=== PATIENT | female | born 1990 | race Caucasian/White ===

== ENCOUNTER 2020-05-03 05:17 | Inpatient (IN) | payer BC ==
[2020-04-26 14:08] LABS: CLARITY,URINE CLEAR (Clear); COLOR,URINE STRAW (Yellow); GLUCOSE, URINE NEGATIVE (Neg); KETONES,URINE NEGATIVE (Neg); LEUKOCYTE ESTERASE ,URINE NEGATIVE (Neg); NITRITES, URINE NEGATIVE (Neg); OCCULT BLOOD,URINE NEGATIVE (Neg); PH,URINE 7.5 (4.8-8.0); PROTEIN,URINE NEGATIVE (Neg)
[2020-04-26 14:09] LABS: UA COLLECTION TYPE CLN CATCH MIDSTREAM
[2020-04-26 14:10] LABS: BASOPHILS # (AUTO) 0.1 X10'3 (0-0.2); BASOPHILS % (AUTO) 0.9 % (0-1); EOSINOPHILS # (AUTO) 0.1 X10'3 (0-0.9); EOSINOPHILS % (AUTO) 1.4 % (0-6); LYMPHOCYTES # (AUTO) 2.5 X10'3 (1.1-4.8); LYMPHOCYTES % (AUTO) 39.4 % (21-51); MEAN CORPUSCULAR HEMOGLOBIN 28.3 PG (27.0-31.0); MEAN CORPUSCULAR HGB CONC 33.3 g/dL (33.0-36.5); MEAN CORPUSCULAR VOLUME 85.1 FL (78-98); MEAN PLATELET VOLUME 9.8 FL (7.4-10.4); MONOCYTES # (AUTO) 0.3 X10'3 (0-0.9); MONOCYTES % (AUTO) 4.9 % (2-12); NEUTROPHILS # (AUTO) 3.4 X10'3 (1.8-7.7); NEUTROPHILS % (AUTO) 53.4 % (42-75); PRE OP HEMATOCRIT 39.4 % (35.0-45.0); PRE OP HEMOGLOBIN 13.1 g/dL (12.0-16.0); PRE OP PLATELET COUNT 304 X10'3 (140-440); RED BLOOD COUNT 4.64 X10'6 (4.20-5.60); RED CELL DISTRIBUTION WIDTH 12.6 % (11.5-14.5)
[2020-04-26 14:18] LABS: PRE OP INR 1.1 INR
[2020-04-26 14:21] LABS: ALBUMIN 4.1 G/DL (3.4-5.0); ALBUMIN/GLOBULIN RATIO 1.2 (1.1-1.5); ALKALINE PHOSPHATASE 82 IU/L (46-116); BLOOD UREA NITROGEN 14 MG/DL (7-18); BUN/CREATININE RATIO 17.7 (6.6-38.0); CALCIUM 8.4 MG/DL (8.5-10.1); CHLORIDE 104 MMOL/L (99-107); CREATININE 0.79 MG/DL (0.40-0.90); PRE OP ALT 19 U/L (30-65); PRE OP ANION GAP 5 (8-16); PRE OP AST 15 U/L (10-37); PRE OP BILIRUB, TOTAL 0.5 MG/DL (0.0-1.0); PRE OP GLUCOSE 82 MG/DL (70-104); PRE OP POTASSIUM 3.6 MMOL/L (3.4-5.1); PRE OP SODIUM 140 MMOL/L (135-145); TOTAL CARBON DIOXIDE 30.8 MMOL/L (24-32); TOTAL PROTEIN 7.6 G/DL (6.4-8.2); eGFR 85 ML/MIN
[2020-04-26 14:29] LABS: HCG SERUM QL NEGATIVE
[2020-04-26 14:40] LABS: ABG BASE EXCESS 0.5 mmol/L (-2.0-2.0); ABG HCO3 25.6 mmol/L (22.0-26.0); ABG OXYGEN SATURATION 96.5 % (94-97); ABG PO2 (T) 86.2 mmHg (75.0-100.0); ALLEN'S TEST POSITIVE; FCOHb 0.3 % (0.0-3.9); FMetHb 0.1 % (0.0-1.5); FO2Hb 96.1 % (94-97); TOTAL HEMOGLOBIN 13.7 G/dl (12.0-16.0)
[~2020-05-03] VITALS: Ht 149.9 cm; Wt 60.6 kg
[2020-05-03] VITALS (17 sets, daily range): BP systolic 91–120; BP diastolic 49–88
[~2020-05-03 05:17] MED LIST: NO HOME MEDS; ceFAZolin 1000mg inj ONE; ringers solution, lacted 1,000 ML IV SCH
[2020-05-03] MEDS ORDERED: VANCOMYCIN INJ 1000 MG in NORMAL SALINE 250ml IV.SOLN IV ONE (05:30)
[2020-05-03] MEDS ORDERED: mupirocin 2% nasal ointment 1gm UD NS ONE (05:30)
[2020-05-03] MEDS ORDERED: insulin regular, human inj. 100 UNITS in normal saline 100ml IV IV SCH (05:30)
[2020-05-03] MEDS ORDERED: gabapentin 400mg capsule PO ONE (05:30)
[2020-05-03] MEDS ORDERED: diazepam 5mg tablet PO PRN (05:30)
[2020-05-03] MEDS ORDERED: metoprolol tartrate 12.5mg (1/2 tablet) PO ONE (05:30)
[2020-05-03] MEDS ORDERED: dextrose 50%-water 50ml dispensing syringe IV PRN ×2 (05:30→11:00)
[2020-05-03] MEDS ORDERED: famotidine 20mg tablet PO ONE (05:30)
[2020-05-03] MEDS ORDERED: ceFAZolin 2gm in dextrose, iso 50 ML IV ONE (05:30)
[2020-05-03] MEDS ORDERED: LIDOcaine 1% (10mg/ml) 2ml vial ONE (05:56)
[2020-05-03] MEDS: LORazepam 2 mg/ml vial IV ONE ×2 (06:13→07:10)
[2020-05-03] MEDS ORDERED: LORazepam 2 mg/ml vial ONE (06:27)
[2020-05-03] MEDS ORDERED: SUFENTANIL CITRATE 50 MCG/ML 2ml ampule IV ONE (07:04)
[2020-05-03] MEDS ORDERED: nitroGLYCERIN in D5W 50mg/250ml (Tridil) infusion IV ONE (07:05)
[2020-05-03] MEDS ORDERED: DOPamine/D5W 400mg/250ml bag IV ONE (07:05)
[2020-05-03] MEDS ORDERED: isoflurane 100ml inhalation liquid IH ONE (07:05)
[2020-05-03] MEDS ORDERED: LORazepam 2 mg/ml vial IM ONE (07:10)
[2020-05-03] MEDS ORDERED: LIDOcaine 2% (20mg/ml) 5ml vial ONE (07:29)
[2020-05-03] MEDS ORDERED: propofol inj 20 ML IV ONE (07:29)
[2020-05-03] MEDS ORDERED: rocuronium 10mg/ml inj IV ONE (07:29)
[2020-05-03] MEDS ORDERED: phenylephrine 10mg/ml inj. ONE ×2 (07:30→08:00)
[2020-05-03 08:00] LABS: ABG BASE EXCESS -0.3 mmol/L (-2.0-2.0); ABG HCO3 21.8 mmol/L (22.0-26.0); ABG OXYGEN SATURATION 99.6 % (94-97); ABG PCO2 27.9 mmHg (32.0-45.0); ABG PO2 283.2 mmHg (75.0-100.0); CL (ABG) 109 mmol/L (98-110); FCOHb 0.4 % (0.0-3.9); FMetHb 0.3 % (0.0-1.5); FO2Hb 98.9 % (94-97); GLUCOSE (ABG) 58 mg/dl (70-140); IONIZED CA (ABG) 1.12 mmol/L (1.10-1.43); K (ABG) 3.4 mmol/L (3.5-5.0)
[2020-05-03] MEDS ORDERED: LIDOcaine 2% (20 mg/ml) 5ml cardiac syringe ONE (08:00)
[2020-05-03] MEDS ORDERED: calcium chloride 100 MG/1 ML inj IV ONE (08:00)
[2020-05-03] MEDS ORDERED: potassium Cl 2 mEq/ml inj IV ONE (08:00)
[2020-05-03] MEDS ORDERED: albumin (human) 25% 100 ML IV solution IV ONE (08:00)
[2020-05-03] MEDS ORDERED: sodium bicarbonate (8.4%) 1 mEq/ml syringe ONE (08:00)
[2020-05-03] MEDS ORDERED: aminocaproic acid 250 MG/1 ML inj. ONE (08:00)
[2020-05-03] MEDS ORDERED: methylPREDNISolone sod succ 1000mg vial ONE (08:00)
[2020-05-03] MEDS ORDERED: MAGNESIUM SULFATE 4 MEQ/ML (5gm/10ml) injection ONE (08:00)
[2020-05-03] MEDS ORDERED: heparin 10,000 units/1 ML INJ ONE (08:00)
[2020-05-03 08:41] LABS: ABG BASE EXCESS -1.9 mmol/L (-2.0-2.0); ABG HCO3 21.7 mmol/L (22.0-26.0); ABG OXYGEN SATURATION 99.4 % (94-97); ABG PCO2 33.1 mmHg (32.0-45.0); ABG PO2 225.9 mmHg (75.0-100.0); CL (ABG) 106 mmol/L (98-110); FCOHb 0.3 % (0.0-3.9); FMetHb 0.3 % (0.0-1.5); FO2Hb 98.8 % (94-97); GLUCOSE (ABG) 243 mg/dl (70-140); IONIZED CA (ABG) 1.11 mmol/L (1.10-1.43); K (ABG) 3.4 mmol/L (3.5-5.0); TOTAL HEMOGLOBIN 10.8 G/dl (12.0-16.0)
[2020-05-03 09:06] LABS: ABG BASE EXCESS VENOUS -0.6 mmol/L; ABG PCO2 VENOUS 46.5 mmHg; ABG PO2 VENOUS 48.9 mmHg; CL (ABG) 104 mmol/L (98-110); FHHb VENOUS 15.5 %; FMetHb VENOUS 0.3 %; FO2Hb VENOUS 83.2 %; GLUCOSE (ABG) 154 mg/dl (70-140); IONIZED CA (ABG) 0.99 mmol/L (1.10-1.43); K (ABG) 4.7 mmol/L (3.5-5.0); TOTAL HEMOGLOBIN 7.8 G/dl (12.0-16.0)
[2020-05-03 09:10] LABS: ABG BASE EXCESS -0.6 mmol/L (-2.0-2.0); ABG HCO3 24.6 mmol/L (22.0-26.0); ABG OXYGEN SATURATION 99.7 % (94-97); ABG PCO2 43.1 mmHg (32.0-45.0); ABG PO2 454.1 mmHg (75.0-100.0); CL (ABG) 105 mmol/L (98-110); FCOHb 0.7 % (0.0-3.9); FMetHb 0.3 % (0.0-1.5); FO2Hb 98.7 % (94-97); GLUCOSE (ABG) 155 mg/dl (70-140); IONIZED CA (ABG) 1.01 mmol/L (1.10-1.43); K (ABG) 4.3 mmol/L (3.5-5.0); TOTAL HEMOGLOBIN 7.8 G/dl (12.0-16.0)
[2020-05-03 09:35] LABS: ABG BASE EXCESS -1.1 mmol/L (-2.0-2.0); ABG HCO3 24.2 mmol/L (22.0-26.0); ABG OXYGEN SATURATION 99.1 % (94-97); ABG PCO2 43.6 mmHg (32.0-45.0); ABG PO2 356.4 mmHg (75.0-100.0); CL (ABG) 106 mmol/L (98-110); FCOHb 0.3 % (0.0-3.9); FMetHb 0.4 % (0.0-1.5); FO2Hb 98.4 % (94-97); GLUCOSE (ABG) 182 mg/dl (70-140); IONIZED CA (ABG) 1.02 mmol/L (1.10-1.43); K (ABG) 3.5 mmol/L (3.5-5.0); TOTAL HEMOGLOBIN 8.7 G/dl (12.0-16.0)
[2020-05-03] MEDS ORDERED: albuterol 2.5 MG/3 ML nebule NEB PRN (09:40)
[2020-05-03 09:55] LABS: ABG BASE EXCESS 2.4 mmol/L (-2.0-2.0); ABG HCO3 26.4 mmol/L (22.0-26.0); ABG OXYGEN SATURATION 98.8 % (94-97); ABG PCO2 38.2 mmHg (32.0-45.0); ABG PO2 305.8 mmHg (75.0-100.0); CL (ABG) 104 mmol/L (98-110); FCOHb 0.3 % (0.0-3.9); FMetHb 0.6 % (0.0-1.5); FO2Hb 97.9 % (94-97); GLUCOSE (ABG) 183 mg/dl (70-140); IONIZED CA (ABG) 1.31 mmol/L (1.10-1.43); K (ABG) 4.3 mmol/L (3.5-5.0); TOTAL HEMOGLOBIN 7.6 G/dl (12.0-16.0)
[2020-05-03 10:36] LABS: ABG BASE EXCESS 0.5 mmol/L (-2.0-2.0); ABG HCO3 23.5 mmol/L (22.0-26.0); ABG OXYGEN SATURATION 98.7 % (94-97); ABG PCO2 31.5 mmHg (32.0-45.0); ABG PO2 205.4 mmHg (75.0-100.0); CL (ABG) 107 mmol/L (98-110); FCOHb 0.3 % (0.0-3.9); FMetHb 0.4 % (0.0-1.5); GLUCOSE (ABG) 159 mg/dl (70-140); IONIZED CA (ABG) 1.24 mmol/L (1.10-1.43); K (ABG) 3.6 mmol/L (3.5-5.0); TOTAL HEMOGLOBIN 9.9 G/dl (12.0-16.0)
[2020-05-03] MEDS ORDERED: acetaminophen 1,000mg/100ml IV 100 ML IV ONE (10:47)
[2020-05-03] MEDS ORDERED: NORMAL SALINE IV ONE (10:50)
[2020-05-03] MEDS ORDERED: DESMOPRESSIN IV ONE (10:50)
[2020-05-03] MEDS ORDERED: pancuronium br 1mg/ml inj IV ONE (10:54)
[2020-05-03] MEDS ORDERED: DOPamine 400mg/D5W 250ml 250 ML IV PRN ×3 (10:56→14:57)
[2020-05-03] MEDS ORDERED: niCARDipine-NS 40mg/200ml IVPB 200 ML IV PRN ×2 (10:56→11:42)
[2020-05-03] MEDS ORDERED: nitroGLYCERIN-Tridil 50MG/D5W 250 ML IV PRN ×2 (10:56→11:43)
[2020-05-03] MEDS ORDERED: normal saline 250ml IV soln 250 ML IV PRN (11:00)
[2020-05-03] MEDS ORDERED: sodium phosphate inj. 30 MMOL in dextrose 5%-water 250 ML IV PRN (11:00)
[2020-05-03] MEDS ORDERED: metoclopramide 5 mg/ml inj IV PRN (11:00)
[2020-05-03] MEDS ORDERED: insulin glargine (Lantus) pen - multi-dose SQ PRN (11:00)
[2020-05-03] MEDS ORDERED: pantoprazole 40 MG vial IV ONE (11:00)
[2020-05-03] MEDS ORDERED: sodium phosphate inj. 15 MMOL in dextrose 5%-water 250 ML IV PRN (11:00)
[2020-05-03] MEDS ORDERED: magnesium citrate 296ml oral solution PO PRN (11:00)
[2020-05-03] MEDS ORDERED: HYDROmorphone 1 mg/ml syringe IV PRN (11:00)
[2020-05-03] MEDS ORDERED: Neutra Phos packet PO PRN (11:00)
[2020-05-03] MEDS ORDERED: mineral oil 133ml enema RC PRN (11:00)
[2020-05-03] MEDS ORDERED: acetaminophen 325mg tablet PO PRN ×2 (11:00)
[2020-05-03] MEDS ORDERED: ondansetron/PF 4mg/2ml inj IV PRN (11:00)
[2020-05-03] MEDS ORDERED: HYDROcodone/acetaminophen 10/325mg tab PO PRN (11:00)
[2020-05-03] MEDS ORDERED: bisacodyl 10mg suppository rectal RC PRN (11:00)
[2020-05-03 11:07] LABS: BASOPHILS % (AUTO) 0.2 % (0-1); EOSINOPHILS % (AUTO) 0.3 % (0-6); HEMATOCRIT 31.5 % (35.0-45.0); HEMOGLOBIN 10.6 g/dl (12.0-16.0); LYMPHOCYTES # (AUTO) 1.3 X10'3 (1.1-4.8); LYMPHOCYTES % (AUTO) 8.9 % (21-51); MEAN CORPUSCULAR HEMOGLOBIN 28.4 PG (27.0-31.0); MEAN CORPUSCULAR HGB CONC 33.8 g/dL (33.0-36.5); MEAN PLATELET VOLUME 9.5 FL (7.4-10.4); MONOCYTES # (AUTO) 0.3 X10'3 (0-0.9); MONOCYTES % (AUTO) 2.2 % (2-12); NEUTROPHILS # (AUTO) 13.2 X10'3 (1.8-7.7); NEUTROPHILS % (AUTO) 88.4 % (42-75); PLATELET COUNT 183 X10'3 (140-440); RED BLOOD COUNT 3.75 X10'6 (4.20-5.60); RED CELL DISTRIBUTION WIDTH 12.3 % (11.5-14.5); WHITE BLOOD COUNT 14.9 X10'3 (4.5-11.0)
[2020-05-03 11:09] LABS: ALBUMIN 3.2 G/DL (3.4-5.0); ANION GAP 5 (8-16); BLOOD UREA NITROGEN 9 MG/DL (7-18); BUN/CREATININE RATIO 11.8 (6.6-38.0); CALCIUM 9.2 MG/DL (8.5-10.1); CHLORIDE 109 MMOL/L (99-107); CREATININE 0.76 MG/DL (0.40-0.90); GLUCOSE 140 MG/DL (70-104); POTASSIUM 3.6 MMOL/L (3.5-5.1); SODIUM 142 MMOL/L (135-145); TOTAL CARBON DIOXIDE 27.8 MMOL/L (24-32); eGFR 89 ML/MIN
[2020-05-03] MEDS ORDERED: albumin (Human) 5% 250ml 250 ML IV ONE (11:13)
[2020-05-03 11:14] LABS: PARTIAL THROMBOPLASTIN TIME 30 SECONDS (22-32)
--- NOTE | 2020-05-03 11:20 | NUR ---
Received to room 2008, accompanied by MDs and surgical crew, Donald. Placed on ventilator at 80%, ABG pending, to staff toxicologist, arterial line and PA line pressure monitored. Chest tubes to suction at 20 cm. Urine cath to gravity drainage. Dressing to antertior chest is dry and intact. See assessment record. All vasoactive drugs are infusing via central line.
--- NOTE | 2020-05-03 11:50 | NUR ---
Dr. Klein at bedside, current labs reviewed, current chest tube output. No new orders.
[2020-05-03] MEDS: potassium Cl 20mEq/100mL bag 100 ML IV PRN ×5 (11:58→19:27)
[2020-05-03] MEDS: HYDROmorphone inj. 0.5 MG/0.5 ML DISP.SYRIN IV PRN ×4 (12:12→22:26)
[2020-05-03] MEDS: sodium chloride 0.45% 1,000 ML IV SCH (12:13)
[2020-05-03] MEDS: albumin (Human) 5% 250ml 250 ML IV PRN ×3 (12:30→21:09)
[2020-05-03 12:36] LABS: ABG BASE EXCESS -2.4 mmol/L (-2.0-2.0); ABG OXYGEN SATURATION 99.1 % (94-97); ABG PCO2 (T) 31.7 mmHg (32.0-45.0); ABG PO2 (T) 373.1 mmHg (75.0-100.0); FCOHb 0.3 % (0.0-3.9); FMetHb 0.4 % (0.0-1.5); FO2Hb 98.4 % (94-97); PEEP 5 cm H2O; RESPIRATORY RATE 12 b/min; TIDAL VOLUME 450 mL; TOTAL HEMOGLOBIN 12.1 G/dl (12.0-16.0)
[2020-05-03 12:47] LABS: MAGNESIUM 2.4 MG/DL (1.5-2.4)
[2020-05-03 12:50] LABS: PHOSPHORUS 1.1 MG/DL (2.3-4.5)
[2020-05-03] MEDS: magnesium 2GM in 50ml NS 50 ML IV PRN ×2 (12:59→18:39)
[2020-05-03] MEDS: Insulin Reg/NS 100units/100mL 100 ML IV SCH (13:07)
[2020-05-03] MEDS: gabapentin 300mg capsule PO SCH ×2 (13:35→20:12)
--- NOTE | 2020-05-03 13:46 | NUR ---
Nutrition consult: Pt s/p AVR today. Pt would benefit from nutrition therapy education once stable. Will continue to follow. Addendum: 05/03/20 at [address] Amended: Links added.
[2020-05-03] MEDS: ketorolac tromethamine 15mg/ml inj. IV SCH ×2 (13:59→20:13)
[2020-05-03 15:56] LABS: ACTIVATED CLOTTING TIME 119 SEC (101-148)
[2020-05-03] MEDS: ceFAZolin 1GM/D5W- ADD-VANTAGE 50 ML IV SCH ×2 (16:21→23:57)
[2020-05-03 17:50] LABS: BASOPHILS % (AUTO) 0.1 % (0-1); EOSINOPHILS % (AUTO) 0 % (0-6); HEMATOCRIT 29.9 % (35.0-45.0); LYMPHOCYTES # (AUTO) 0.5 X10'3 (1.1-4.8); LYMPHOCYTES % (AUTO) 3.1 % (21-51); MEAN CORPUSCULAR HEMOGLOBIN 28.5 PG (27.0-31.0); MEAN CORPUSCULAR HGB CONC 33.4 g/dL (33.0-36.5); MEAN CORPUSCULAR VOLUME 85.3 FL (78-98); MEAN PLATELET VOLUME 9.6 FL (7.4-10.4); MONOCYTES # (AUTO) 0.3 X10'3 (0-0.9); MONOCYTES % (AUTO) 2.1 % (2-12); NEUTROPHILS # (AUTO) 14.2 X10'3 (1.8-7.7); NEUTROPHILS % (AUTO) 94.7 % (42-75); PLATELET COUNT 145 X10'3 (140-440); RED CELL DISTRIBUTION WIDTH 12.4 % (11.5-14.5)
[2020-05-03 18:08] LABS: ALBUMIN 4.2 G/DL (3.4-5.0); ANION GAP 10 (8-16); BLOOD UREA NITROGEN 10 MG/DL (7-18); BUN/CREATININE RATIO 11.9 (6.6-38.0); CALCIUM 8.7 MG/DL (8.5-10.1); CHLORIDE 111 MMOL/L (99-107); CREATININE 0.84 MG/DL (0.40-0.90); GLUCOSE 111 MG/DL (70-104); MAGNESIUM 2.4 MG/DL (1.5-2.4); POTASSIUM 3.8 MMOL/L (3.5-5.1); SODIUM 145 MMOL/L (135-145); TOTAL CARBON DIOXIDE 23.7 MMOL/L (24-32); eGFR 80 ML/MIN
[2020-05-03 18:13] LABS: PHOSPHORUS 1.2 MG/DL (2.3-4.5)
--- NOTE | 2020-05-03 18:49 | NUR ---
Patient in room CICU 2008. I have received report from Sanjuana SÁNCHEZ and had the opportunity to ask questions and assume patient care.
[2020-05-03] MEDS: mupirocin 2% nasal ointment 1gm UD NS SCH (20:13)
[2020-05-03] MEDS: vancomycin/NS 1 GM ADD-VANTAGE 250 ML IV SCH (20:13)
[2020-05-03] MEDS: sennosides/docusate sodium tablet PO SCH (20:13)
--- NOTE | 2020-05-03 21:30 | NUR ---
Pt's SBP is sustaining in the 80's, 250ml of albumin given as ordered
[2020-05-03 21:55] LABS: ABG BASE EXCESS -5.4 mmol/L (-2.0-2.0); ABG HCO3 19.2 mmol/L (22.0-26.0); ABG OXYGEN SATURATION 98.2 % (94-97); ABG PCO2 (T) 33.9 mmHg (32.0-45.0); ABG PO2 (T) 139.6 mmHg (75.0-100.0); FCOHb 0.3 % (0.0-3.9); FMetHb 0.3 % (0.0-1.5); FO2Hb 97.6 % (94-97); PATIENT TEMPERATURE 36.9; PEEP 5 cm H2O; TOTAL HEMOGLOBIN 10.3 G/dl (12.0-16.0)
[2020-05-04] VITALS (24 sets, daily range): BP systolic 90–118; BP diastolic 45–80
[2020-05-04] MEDS: HYDROmorphone inj. 0.5 MG/0.5 ML DISP.SYRIN IV PRN ×5 (00:42→19:12)
--- NOTE | 2020-05-04 01:36 | NUR ---
Pt doing well, fatigued but in good spirits. She has had some water and tolerated it well, no nausea. The pt has been painful, receptive to sternal precautions education and Dilaudid helps control it. The pt's belongings were left in the PASS unit and will be up in the morning when they are open. Pt is still pacer dependent.
[2020-05-04] MEDS: ketorolac tromethamine 15mg/ml inj. IV SCH ×3 (02:35→10:27)
[2020-05-04 04:01] LABS: BASOPHILS % (AUTO) 0.1 % (0-1); EOSINOPHILS % (AUTO) 0 % (0-6); HEMATOCRIT 27.6 % (35.0-45.0); HEMOGLOBIN 9.1 g/dl (12.0-16.0); LYMPHOCYTES # (AUTO) 0.9 X10'3 (1.1-4.8); LYMPHOCYTES % (AUTO) 6.3 % (21-51); MEAN CORPUSCULAR VOLUME 84.9 FL (78-98); MEAN PLATELET VOLUME 10.5 FL (7.4-10.4); MONOCYTES # (AUTO) 0.8 X10'3 (0-0.9); MONOCYTES % (AUTO) 5.5 % (2-12); NEUTROPHILS # (AUTO) 13.2 X10'3 (1.8-7.7); NEUTROPHILS % (AUTO) 88.1 % (42-75); PLATELET COUNT 148 X10'3 (140-440); RED BLOOD COUNT 3.24 X10'6 (4.20-5.60); RED CELL DISTRIBUTION WIDTH 12.7 % (11.5-14.5)
[2020-05-04 04:11] LABS: ALANINE AMINOTRANSFERASE 20 U/L (12-78); ALBUMIN 3.9 G/DL (3.4-5.0); ALBUMIN/GLOBULIN RATIO 2.1 (1.1-1.5); ALKALINE PHOSPHATASE 38 IU/L (46-116); ANION GAP 8 (8-16); ASPARTATE AMINO TRANSFERASE 46 U/L (10-37); BILIRUBIN,TOTAL 0.7 MG/DL (0.1-1.0); BLOOD UREA NITROGEN 8 MG/DL (7-18); BUN/CREATININE RATIO 15.4 (6.6-38.0); CALCIUM 7.7 MG/DL (8.5-10.1); CHLORIDE 108 MMOL/L (99-107); CREATININE 0.52 MG/DL (0.40-0.90); GLUCOSE 120 MG/DL (70-104); MAGNESIUM 2.3 MG/DL (1.5-2.4); PARTIAL THROMBOPLASTIN TIME 35 SECONDS (22-32); PHOSPHORUS 3.8 MG/DL (2.3-4.5); POTASSIUM 3.9 MMOL/L (3.5-5.1); SODIUM 140 MMOL/L (135-145); TOTAL CARBON DIOXIDE 23.6 MMOL/L (24-32); TOTAL PROTEIN 5.8 G/DL (6.4-8.2); eGFR > 90 ML/MIN
--- NOTE | 2020-05-04 04:42 | NUR ---
pt's belongings were brought from the pass unit and everything was in the bag. Pt also sat at the edge of the bed and dangled her legs and then stood for a few mins, the pt tolerated it well
[2020-05-04] MEDS: magnesium 2GM in 50ml NS 50 ML IV PRN (04:50)
[2020-05-04] MEDS: potassium Cl 20mEq/100mL bag 100 ML IV PRN ×2 (04:50→05:44)
--- NOTE | 2020-05-04 06:22 | NUR ---
Problems reprioritized. Patient report given, questions answered & plan of care reviewed with Ivania SÁNCHEZ.
--- NOTE | 2020-05-04 06:30 | NUR ---
Received report from PRINCESS Lawson
[2020-05-04] MEDS: HYDROcodone/acetaminophen 10/325mg tab PO PRN ×4 (07:01→21:58)
[2020-05-04] MEDS ORDERED: metoprolol tartrate 12.5mg (1/2 tablet) PO SCH (08:00)
[2020-05-04] MEDS: ceFAZolin 1GM/D5W- ADD-VANTAGE 50 ML IV SCH ×3 (08:08→23:53)
[2020-05-04] MEDS: gabapentin 300mg capsule PO SCH ×3 (08:09→20:52)
[2020-05-04] MEDS: atorvastatin 10mg tablet PO SCH (08:09)
[2020-05-04] MEDS: aspirin 325mg tablet, delayed-release (Ecotrin) PO SCH (08:09)
[2020-05-04] MEDS: sennosides/docusate sodium tablet PO SCH ×2 (08:09→20:52)
[2020-05-04] MEDS: mupirocin 2% nasal ointment 1gm UD NS SCH ×2 (08:09→20:52)
[2020-05-04] MEDS: vancomycin/NS 1 GM ADD-VANTAGE 250 ML IV SCH ×2 (08:10→20:52)
[2020-05-04 08:52] LABS: MAGNESIUM 2.6 MG/DL (1.5-2.4); PHOSPHORUS 2.9 MG/DL (2.3-4.5); POTASSIUM 4.5 MMOL/L (3.5-5.1)
[2020-05-04] MEDS ORDERED: ketorolac tromethamine 15mg/ml inj. IV ONE (10:00)
--- NOTE | 2020-05-04 18:58 | NUR ---
Report given to Nathen RN
--- NOTE | 2020-05-04 19:00 | NUR ---
Patient in room CICU 2008. I have received report from Ivania SÁNCHEZ and had the opportunity to ask questions and assume patient care. pt has soft BP 90's over 40's is normal for this pt per hand off report and pt.
[2020-05-04] MEDS: Insulin Reg/NS 100units/100mL 100 ML IV SCH (20:16)
[2020-05-05] VITALS (24 sets, daily range): BP systolic 85–106; BP diastolic 43–68
[2020-05-05 02:42] LABS: BASOPHILS % (AUTO) 0 % (0-1); EOSINOPHILS % (AUTO) 0 % (0-6); HEMATOCRIT 24.8 % (35.0-45.0); HEMOGLOBIN 8.3 g/dl (12.0-16.0); LYMPHOCYTES # (AUTO) 1.1 X10'3 (1.1-4.8); MEAN CORPUSCULAR HEMOGLOBIN 28.7 PG (27.0-31.0); MEAN CORPUSCULAR HGB CONC 33.5 g/dL (33.0-36.5); MEAN CORPUSCULAR VOLUME 85.7 FL (78-98); MEAN PLATELET VOLUME 10.2 FL (7.4-10.4); MONOCYTES # (AUTO) 0.7 X10'3 (0-0.9); MONOCYTES % (AUTO) 3.8 % (2-12); NEUTROPHILS # (AUTO) 16.8 X10'3 (1.8-7.7); NEUTROPHILS % (AUTO) 90.2 % (42-75); PLATELET COUNT 133 X10'3 (140-440); RED BLOOD COUNT 2.89 X10'6 (4.20-5.60); RED CELL DISTRIBUTION WIDTH 12.7 % (11.5-14.5); WHITE BLOOD COUNT 18.6 X10'3 (4.5-11.0)
[2020-05-05 02:48] LABS: ALBUMIN 3.3 G/DL (3.4-5.0); ANION GAP 5 (8-16); BLOOD UREA NITROGEN 9 MG/DL (7-18); CALCIUM 8.1 MG/DL (8.5-10.1); CHLORIDE 102 MMOL/L (99-107); CREATININE 0.69 MG/DL (0.40-0.90); GLUCOSE 138 MG/DL (70-104); MAGNESIUM 1.8 MG/DL (1.5-2.4); PHOSPHORUS 2.5 MG/DL (2.3-4.5); POTASSIUM 4.6 MMOL/L (3.5-5.1); SODIUM 134 MMOL/L (135-145); TOTAL CARBON DIOXIDE 27.4 MMOL/L (24-32); eGFR > 90 ML/MIN
[2020-05-05] MEDS: HYDROmorphone inj. 0.5 MG/0.5 ML DISP.SYRIN IV PRN ×3 (03:30→23:43)
[2020-05-05] MEDS: magnesium 4gm in 100ml NS 100 ML IV PRN (05:32)
--- NOTE | 2020-05-05 06:10 | NUR ---
Problems reprioritized. Patient report given, questions answered & plan of care reviewed with Héctor SÁNCHEZ.
--- NOTE | 2020-05-05 06:13 | NUR ---
Patient in room CICU 2008. I have received report from PRINCESS Sena and had the opportunity to ask questions and assume patient care.
[2020-05-05] MEDS: aspirin 325mg tablet, delayed-release (Ecotrin) PO SCH (08:18)
[2020-05-05] MEDS: sennosides/docusate sodium tablet PO SCH ×2 (08:18→19:10)
[2020-05-05] MEDS: gabapentin 300mg capsule PO SCH (08:18)
[2020-05-05] MEDS: atorvastatin 10mg tablet PO SCH (08:19)
[2020-05-05] MEDS: pantoprazole 40mg Tablet.DR PO SCH (08:19)
[2020-05-05] MEDS: mupirocin 2% nasal ointment 1gm UD NS SCH (08:19)
[2020-05-05] MEDS: HYDROcodone/acetaminophen 10/325mg tab PO PRN ×3 (08:28→22:13)
[2020-05-05] MEDS ORDERED: furosemide 40mg/4ml inj IV ONE (08:55)
[2020-05-05] MEDS: sodium chloride 0.45% 1,000 ML IV SCH (10:56)
--- NOTE | 2020-05-05 18:06 | NUR ---
Problems reprioritized. Patient report given, questions answered & plan of care reviewed with PRINCESS Angel.
--- NOTE | 2020-05-05 18:25 | NUR ---
Patient in room CICU 2008. I have received report from Héctor SÁNCHEZ and had the opportunity to ask questions and assume patient care.
[2020-05-05] MEDS: magnesium hydroxide 30ml (MOM) UD suspension PO PRN (19:19)
[2020-05-06] VITALS (24 sets, daily range): BP systolic 81–112; BP diastolic 36–73
[2020-05-06] MEDS: Insulin Reg/NS 100units/100mL 100 ML IV SCH (04:04)
[2020-05-06] MEDS: HYDROcodone/acetaminophen 10/325mg tab PO PRN ×3 (04:11→19:27)
[2020-05-06 05:40] LABS: BASOPHILS % (AUTO) 0.2 % (0-1); EOSINOPHILS % (AUTO) 0.3 % (0-6); HEMATOCRIT 24.4 % (35.0-45.0); HEMOGLOBIN 8.4 g/dl (12.0-16.0); LYMPHOCYTES # (AUTO) 3.4 X10'3 (1.1-4.8); LYMPHOCYTES % (AUTO) 24.1 % (21-51); MEAN CORPUSCULAR HEMOGLOBIN 29.1 PG (27.0-31.0); MEAN CORPUSCULAR HGB CONC 34.4 g/dL (33.0-36.5); MEAN CORPUSCULAR VOLUME 84.8 FL (78-98); MEAN PLATELET VOLUME 10.4 FL (7.4-10.4); MONOCYTES # (AUTO) 0.9 X10'3 (0-0.9); MONOCYTES % (AUTO) 6.2 % (2-12); NEUTROPHILS # (AUTO) 9.7 X10'3 (1.8-7.7); NEUTROPHILS % (AUTO) 69.2 % (42-75); PLATELET COUNT 147 X10'3 (140-440); RED BLOOD COUNT 2.88 X10'6 (4.20-5.60); RED CELL DISTRIBUTION WIDTH 12.6 % (11.5-14.5)
[2020-05-06] MEDS: HYDROmorphone inj. 0.5 MG/0.5 ML DISP.SYRIN IV PRN ×2 (05:55→15:44)
--- NOTE | 2020-05-06 06:22 | NUR ---
Problems reprioritized. Patient report given, questions answered & plan of care reviewed with Marycruz SÁNCHEZ.
--- NOTE | 2020-05-06 06:27 | NUR ---
Patient in room CICU 2008. I have received report from Stanley and had the opportunity to ask questions and assume patient care.
[2020-05-06 06:28] LABS: ALBUMIN 3.3 G/DL (3.4-5.0); ANION GAP 3 (8-16); BLOOD UREA NITROGEN 8 MG/DL (7-18); BUN/CREATININE RATIO 12.7 (6.6-38.0); CALCIUM 7.9 MG/DL (8.5-10.1); CHLORIDE 105 MMOL/L (99-107); CREATININE 0.63 MG/DL (0.40-0.90); GLUCOSE 84 MG/DL (70-104); PHOSPHORUS 2.5 MG/DL (2.3-4.5); POTASSIUM 3.6 MMOL/L (3.5-5.1); SODIUM 140 MMOL/L (135-145); TOTAL CARBON DIOXIDE 31.6 MMOL/L (24-32); eGFR > 90 ML/MIN
[2020-05-06] MEDS: aspirin 325mg tablet, delayed-release (Ecotrin) PO SCH (07:53)
[2020-05-06] MEDS: atorvastatin 10mg tablet PO SCH (07:53)
[2020-05-06] MEDS: sennosides/docusate sodium tablet PO SCH ×2 (07:53→20:14)
[2020-05-06] MEDS: potassium Cl 20 mEq SR tablet PO PRN ×4 (07:53→15:34)
[2020-05-06] MEDS: pantoprazole 40mg Tablet.DR PO SCH (07:54)
[2020-05-06] MEDS: magnesium 4gm in 100ml NS 100 ML IV PRN (07:55)
--- NOTE | 2020-05-06 18:25 | NUR ---
Patient in room CICU 2008. I have received report from PRINCESS Joel and had the opportunity to ask questions and assume patient care. Patient up to bedside commode with stand by assistance at time of report. Patient educated on use of sternal precautions. Patient currently V-Paced on the monitor by external pacer wires. Chest incision open to air, chest tube sites covered, small amount of serous drainage noted. Pacer wires secured. Patient encourage to eat her dinner, she expresses that she does not have the appetite for the hospital food. Patient educated on use of incentive spirometer, patient used IS with tidal volume reaching the 5508-5929 range. Encouraged hourly use while awake. Patient relates that she does not want to do any personal hygiene at this time. Will continue to monitor.
--- NOTE | 2020-05-06 18:27 | NUR ---
Problems reprioritized. Patient report given, questions answered & plan of care reviewed with Sylvia.
--- NOTE | 2020-05-06 23:13 | NUR ---
Patient appears to be resting comfortably. Call light in reach, in view of RN
[2020-05-07] VITALS (24 sets, daily range): BP systolic 71–106; BP diastolic 36–61
[2020-05-07] MEDS: HYDROcodone/acetaminophen 10/325mg tab PO PRN ×3 (01:49→14:08)
--- NOTE | 2020-05-07 02:00 | NUR ---
Patient relates she was able to get some sleep. Currently c/o pain to sternal incision site and to her back. Patient assisted in repositioning and pain medication administered as ordered. Patient declines assistance to bed side commode at this time, relates she does not need to use it at this time. Educated on sternal precautions and use of call light.
[2020-05-07 02:20] LABS: BASOPHILS # (AUTO) 0.1 X10'3 (0-0.2); EOSINOPHILS # (AUTO) 0.1 X10'3 (0-0.9); EOSINOPHILS % (AUTO) 1.5 % (0-6); HEMATOCRIT 24.7 % (35.0-45.0); HEMOGLOBIN 8.5 g/dl (12.0-16.0); LYMPHOCYTES % (AUTO) 39.8 % (21-51); MEAN CORPUSCULAR HEMOGLOBIN 29.3 PG (27.0-31.0); MEAN CORPUSCULAR HGB CONC 34.3 g/dL (33.0-36.5); MEAN CORPUSCULAR VOLUME 85.2 FL (78-98); MEAN PLATELET VOLUME 9.9 FL (7.4-10.4); MONOCYTES # (AUTO) 0.6 X10'3 (0-0.9); MONOCYTES % (AUTO) 5.8 % (2-12); NEUTROPHILS # (AUTO) 5.2 X10'3 (1.8-7.7); NEUTROPHILS % (AUTO) 51.9 % (42-75); PLATELET COUNT 180 X10'3 (140-440); RED CELL DISTRIBUTION WIDTH 12.9 % (11.5-14.5)
[2020-05-07 02:35] LABS: ALBUMIN 3.1 G/DL (3.4-5.0); ANION GAP 1 (8-16); BLOOD UREA NITROGEN 9 MG/DL (7-18); BUN/CREATININE RATIO 13.6 (6.6-38.0); CHLORIDE 107 MMOL/L (99-107); CREATININE 0.66 MG/DL (0.40-0.90); GLUCOSE 88 MG/DL (70-104); MAGNESIUM 1.8 MG/DL (1.5-2.4); PHOSPHORUS 2.8 MG/DL (2.3-4.5); POTASSIUM 4.2 MMOL/L (3.5-5.1); SODIUM 140 MMOL/L (135-145); TOTAL CARBON DIOXIDE 31.6 MMOL/L (24-32); eGFR > 90 ML/MIN
[2020-05-07] MEDS: potassium Cl 20 mEq SR tablet PO PRN (03:02)
[2020-05-07] MEDS: magnesium 4gm in 100ml NS 100 ML IV PRN (03:02)
[2020-05-07] MEDS: sodium chloride 0.45% 1,000 ML IV SCH (03:04)
--- NOTE | 2020-05-07 06:00 | NUR ---
Patient in room CICU 2008. I have received report from Sylvia SÁNCHEZ and had the opportunity to ask questions and assume patient care.
[2020-05-07] MEDS: pantoprazole 40mg Tablet.DR PO SCH (07:55)
[2020-05-07] MEDS: aspirin 325mg tablet, delayed-release (Ecotrin) PO SCH (07:55)
[2020-05-07] MEDS: atorvastatin 10mg tablet PO SCH (07:55)
[2020-05-07] MEDS: sennosides/docusate sodium tablet PO SCH ×2 (07:55→20:07)
[2020-05-07] MEDS ORDERED: furosemide 40mg/4ml inj IV ONE (09:25)
--- NOTE | 2020-05-07 11:42 | NUR ---
Nutrition Consult: Pt s/p AVR hx congenital aortic valve disease PO 0-25% NCS meals fluctuates overall not meeting needs. LBM 04/30 receiving routine senna; RD d/w RN regarding additional bowel care if MD agreeable. Constipation likely impacting PO. Pt seen by RD for written/verbal high protein/HH diet eds w/ RD contact information provided. Noted snacks at bedside from outside likely impacting PO meals as well. Pt is agreeable to cottage cheese w/ peaches and banana at breakfast and to receive at lunch today since after breakfast. Dietary notified. Pt reports disliking food flavor and is agreeable to seasoning packet WS but declines further specifics; is also agreeable to strawberry nacho shake BIDBL. MD notified. Will continue to monitor for additional protein needs post-op. Rec: 1. advance diet as medically indicated to heart healthy; encourage PO 2. strawberry nacho shake BIDBL; cottage cheese w/ peaches and banana at breakfasts per request 3. routine bowel care; no BM 7 days post-op 4. weekly wts Addendum: 05/07/20 at [address] Amended: Links added.
[2020-05-07] MEDS: JUVEN Shake w/Arg/Glut/Ca2+Bmb (Juven 19.3gm) pkt 240ml PO SCH (12:30)
[2020-05-07] MEDS: Insulin Reg/NS 100units/100mL 100 ML IV SCH (14:56)
[2020-05-07] MEDS: HYDROmorphone inj. 0.5 MG/0.5 ML DISP.SYRIN IV PRN ×4 (15:55→23:52)
[2020-05-08] VITALS (24 sets, daily range): BP systolic 87–119; BP diastolic 50–88
[2020-05-08 01:53] LABS: BASOPHILS # (AUTO) 0.1 X10'3 (0-0.2); BASOPHILS % (AUTO) 1.3 % (0-1); EOSINOPHILS # (AUTO) 0.3 X10'3 (0-0.9); HEMATOCRIT 26.1 % (35.0-45.0); HEMOGLOBIN 9.1 g/dl (12.0-16.0); LYMPHOCYTES # (AUTO) 3.8 X10'3 (1.1-4.8); MEAN CORPUSCULAR HEMOGLOBIN 29.6 PG (27.0-31.0); MEAN CORPUSCULAR HGB CONC 34.7 g/dL (33.0-36.5); MEAN CORPUSCULAR VOLUME 85.4 FL (78-98); MONOCYTES # (AUTO) 0.6 X10'3 (0-0.9); MONOCYTES % (AUTO) 5.9 % (2-12); NEUTROPHILS # (AUTO) 5.2 X10'3 (1.8-7.7); NEUTROPHILS % (AUTO) 51.8 % (42-75); PLATELET COUNT 241 X10'3 (140-440); RED BLOOD COUNT 3.06 X10'6 (4.20-5.60); RED CELL DISTRIBUTION WIDTH 12.4 % (11.5-14.5); WHITE BLOOD COUNT 10.1 X10'3 (4.5-11.0)
[2020-05-08 02:05] LABS: ALBUMIN 3.1 G/DL (3.4-5.0); ANION GAP 5 (8-16); BLOOD UREA NITROGEN 9 MG/DL (7-18); BUN/CREATININE RATIO 14.3 (6.6-38.0); CALCIUM 8.1 MG/DL (8.5-10.1); CHLORIDE 103 MMOL/L (99-107); CREATININE 0.63 MG/DL (0.40-0.90); GLUCOSE 86 MG/DL (70-104); MAGNESIUM 1.5 MG/DL (1.5-2.4); PHOSPHORUS 4.4 MG/DL (2.3-4.5); POTASSIUM 3.5 MMOL/L (3.5-5.1); SODIUM 139 MMOL/L (135-145); TOTAL CARBON DIOXIDE 30.8 MMOL/L (24-32); eGFR > 90 ML/MIN
--- NOTE | 2020-05-08 06:19 | NUR ---
Problems reprioritized. Patient report given, questions answered & plan of care reviewed with Samreen SÁNCHEZ.
--- NOTE | 2020-05-08 06:25 | NUR ---
Patient in room CICU 2008. I have received report from PRINCESS Silva and had the opportunity to ask questions and assume patient care.
--- NOTE | 2020-05-08 08:00 | NUR ---
Patient off floor to cardiac cath lab manager. Addendum: 05/08/20 at 0801 by Samreen King RN above note in error, wrong patient
[2020-05-08] MEDS: pantoprazole 40mg Tablet.DR PO SCH (08:12)
[2020-05-08] MEDS: sennosides/docusate sodium tablet PO SCH ×2 (08:12→19:47)
[2020-05-08] MEDS: atorvastatin 10mg tablet PO SCH (08:12)
[2020-05-08] MEDS: aspirin 325mg tablet, delayed-release (Ecotrin) PO SCH (08:12)
[2020-05-08] MEDS: JUVEN Shake w/Arg/Glut/Ca2+Bmb (Juven 19.3gm) pkt 240ml PO SCH ×2 (08:13→12:44)
[2020-05-08] MEDS: HYDROmorphone inj. 0.5 MG/0.5 ML DISP.SYRIN IV PRN (08:13)
[2020-05-08] MEDS: ibuprofen 200mg tablet PO PRN (08:50)
[2020-05-08] MEDS ORDERED: magnesium hydroxide 30ml (MOM) UD suspension PO PRN (10:10)
[2020-05-08] MEDS: magnesium hydroxide 30ml (MOM) UD suspension PO PRN (10:19)
[2020-05-08] MEDS: HYDROcodone/acetaminophen 10/325mg tab PO PRN ×3 (11:04→19:55)
--- NOTE | 2020-05-08 18:23 | NUR ---
Problems reprioritized. Patient report given, questions answered & plan of care reviewed with PRINCESS Hooper. Patient stable at transfer of care.
--- NOTE | 2020-05-08 18:30 | NUR ---
Patient in room CICU 2008. I have received report from Samreen SÁNCHEZ and had the opportunity to ask questions and assume patient care.
[2020-05-09] VITALS (19 sets, daily range): BP systolic 88–117; BP diastolic 45–83
[2020-05-09] MEDS: Insulin Reg/NS 100units/100mL 100 ML IV SCH (00:16)
[2020-05-09] MEDS: HYDROcodone/acetaminophen 10/325mg tab PO PRN ×4 (02:57→22:50)
[2020-05-09 03:26] LABS: BASOPHILS # (AUTO) 0.1 X10'3 (0-0.2); BASOPHILS % (AUTO) 0.8 % (0-1); EOSINOPHILS # (AUTO) 0.4 X10'3 (0-0.9); EOSINOPHILS % (AUTO) 3.5 % (0-6); HEMATOCRIT 27.4 % (35.0-45.0); HEMOGLOBIN 9.5 g/dl (12.0-16.0); LYMPHOCYTES # (AUTO) 3.3 X10'3 (1.1-4.8); LYMPHOCYTES % (AUTO) 31.2 % (21-51); MEAN CORPUSCULAR HEMOGLOBIN 29.7 PG (27.0-31.0); MEAN CORPUSCULAR HGB CONC 34.6 g/dL (33.0-36.5); MEAN CORPUSCULAR VOLUME 85.8 FL (78-98); MEAN PLATELET VOLUME 8.6 FL (7.4-10.4); MONOCYTES # (AUTO) 0.6 X10'3 (0-0.9); MONOCYTES % (AUTO) 6.1 % (2-12); NEUTROPHILS # (AUTO) 6.3 X10'3 (1.8-7.7); NEUTROPHILS % (AUTO) 58.4 % (42-75); PLATELET COUNT 303 X10'3 (140-440); RED CELL DISTRIBUTION WIDTH 12.4 % (11.5-14.5); WHITE BLOOD COUNT 10.7 X10'3 (4.5-11.0)
[2020-05-09 03:35] LABS: ANION GAP 6 (8-16); BLOOD UREA NITROGEN 10 MG/DL (7-18); BUN/CREATININE RATIO 16.7 (6.6-38.0); CHLORIDE 103 MMOL/L (99-107); GLUCOSE 99 MG/DL (70-104); POTASSIUM 3.8 MMOL/L (3.5-5.1); SODIUM 140 MMOL/L (135-145); TOTAL CARBON DIOXIDE 31.4 MMOL/L (24-32)
[2020-05-09 03:36] LABS: ALBUMIN 3.3 G/DL (3.4-5.0); CALCIUM 8.4 MG/DL (8.5-10.1); MAGNESIUM 1.6 MG/DL (1.5-2.4); PHOSPHORUS 4.7 MG/DL (2.3-4.5); eGFR > 90 ML/MIN
[2020-05-09] MEDS: sodium chloride 0.45% 1,000 ML IV SCH (06:24)
--- NOTE | 2020-05-09 06:30 | NUR ---
Received report from Sandie SÁNCHEZ, [facility].
--- NOTE | 2020-05-09 06:31 | NUR ---
Problems reprioritized. Patient report given, questions answered & plan of care reviewed with Patricia SÁNCHEZ.
[2020-05-09] MEDS: JUVEN Shake w/Arg/Glut/Ca2+Bmb (Juven 19.3gm) pkt 240ml PO SCH ×2 (07:30→13:14)
[2020-05-09] MEDS: sennosides/docusate sodium tablet PO SCH ×2 (07:40→20:24)
[2020-05-09] MEDS: atorvastatin 10mg tablet PO SCH (07:41)
[2020-05-09] MEDS: pantoprazole 40mg Tablet.DR PO SCH (07:41)
[2020-05-09] MEDS: aspirin 325mg tablet, delayed-release (Ecotrin) PO SCH (07:41)
[2020-05-09] MEDS: potassium Cl 20 mEq SR tablet PO PRN (07:48)
[2020-05-09] MEDS: magnesium 4gm in 100ml NS 100 ML IV PRN (07:50)
[2020-05-09] MEDS ORDERED: clindamycin-Cleocin 900mg/D5W 50 ML IV ONE (09:00)
--- NOTE | 2020-05-09 09:00 | NUR ---
Received call from Lana Covarrubias to hang clindamycin to go with patient to [facility].
--- NOTE | 2020-05-09 11:07 | NUR ---
Patient resting, blood pressure runs on the lower end. Maintaining MAP above 65. Plans to have PPM done at [address] Peña and if all goes well possible discharge home tomorrow.
[2020-05-09] MEDS: magnesium 2GM in 50ml NS 50 ML IV PRN (12:05)
--- NOTE | 2020-05-09 14:23 | NUR ---
PREOP PREP PERFORMED FOR PPM WITH DR. BUNDY. VSS. V-PACED WITH WITH EXTERNAL PACING, UNDERLYING 3RD DEGREE HEART BLOCK.
--- NOTE | 2020-05-09 16:14 | NUR ---
PPM TO BE DONE BY DR. BUNDY AT 1630, [facility] RN CALLED FOR REPORT. WILL BE ARRIVING TO GET PATIENT SOON.
[2020-05-09] MEDS ORDERED: ceFAZolin 1000mg inj ONE (16:22)
[2020-05-09] MEDS ORDERED: fentaNYL/PF 50MCG/1 ML 2ML syringe ONE ×2 (16:22→17:12)
[2020-05-09] MEDS ORDERED: LIDOcaine 1% W/epiNEPHrine 1:100,000 20ml vial ONE ×2 (16:22→17:13)
[2020-05-09] MEDS ORDERED: midazolam 2 mg/2 ml injection ONE ×3 (16:22→17:14)
--- NOTE | 2020-05-09 16:37 | NUR ---
TEST OPERATOR RN TRANSPORTED PATIENT TO TEST OPERATOR FOR PPM PLACEMENT AT THIS TIME. WILL BE GOING TO ROOM 3015.
[2020-05-09] MEDS ORDERED: clindamycin phosphate 150mg/ml inj. ONE (16:58)
[2020-05-09] MEDS ORDERED: proCHLORperazine 10 MG/2 ml inj ONE (17:07)
--- NOTE | 2020-05-09 17:26 | NUR ---
CALLED REPORT TO MELVIN SÁNCHEZ ON ACCE UNIT, PATIENT TO GO DIRECTLY TO ACCE ROOM 315 FOLLOWING PACEMAKER PROCEDURE.
[2020-05-09] MEDS ORDERED: normal saline 1000ml 1,000 ML IV SCH (18:55)
--- NOTE | 2020-05-09 21:48 | NUR ---
Paged Dr. Maliha Peña's office regarding the patient's antibiotic. She is currently not on any antibiotics but a prescription written for clindamycin 300 mg po TID for 5 days when she get discharged. Waiting for call back.
[2020-05-10] MEDS: ibuprofen 200mg tablet PO PRN (01:17)
[2020-05-10 01:50] LABS: BASOPHILS # (AUTO) 0.1 X10'3 (0-0.2); BASOPHILS % (AUTO) 0.5 % (0-1); EOSINOPHILS # (AUTO) 0.1 X10'3 (0-0.9); EOSINOPHILS % (AUTO) 0.7 % (0-6); HEMATOCRIT 26.2 % (35.0-45.0); HEMOGLOBIN 8.9 g/dl (12.0-16.0); LYMPHOCYTES # (AUTO) 1.7 X10'3 (1.1-4.8); LYMPHOCYTES % (AUTO) 14.5 % (21-51); MEAN CORPUSCULAR HGB CONC 33.8 g/dL (33.0-36.5); MEAN CORPUSCULAR VOLUME 85.6 FL (78-98); MONOCYTES # (AUTO) 0.6 X10'3 (0-0.9); MONOCYTES % (AUTO) 5.4 % (2-12); NEUTROPHILS # (AUTO) 9.4 X10'3 (1.8-7.7); NEUTROPHILS % (AUTO) 78.9 % (42-75); PLATELET COUNT 334 X10'3 (140-440); RED BLOOD COUNT 3.06 X10'6 (4.20-5.60); RED CELL DISTRIBUTION WIDTH 12.3 % (11.5-14.5)
[2020-05-10 02:00] VITALS: BP 108/56
[2020-05-10 02:39] LABS: ALBUMIN 3.3 G/DL (3.4-5.0); ANION GAP 6 (8-16); BLOOD UREA NITROGEN 10 MG/DL (7-18); BUN/CREATININE RATIO 13.2 (6.6-38.0); CHLORIDE 103 MMOL/L (99-107); CREATININE 0.76 MG/DL (0.40-0.90); GLUCOSE 112 MG/DL (70-104); MAGNESIUM 1.7 MG/DL (1.5-2.4); PHOSPHORUS 3.4 MG/DL (2.3-4.5); POTASSIUM 3.9 MMOL/L (3.5-5.1); SODIUM 135 MMOL/L (135-145); TOTAL CARBON DIOXIDE 25.6 MMOL/L (24-32); eGFR 89 ML/MIN
[2020-05-10] MEDS: HYDROcodone/acetaminophen 10/325mg tab PO PRN ×2 (02:50→09:54)
[2020-05-10 06:00] VITALS: BP 91/50
--- NOTE | 2020-05-10 06:10 | NUR ---
Problems reprioritized. Patient report given Kelby, questions answered & plan of care reviewed with .
[2020-05-10] MEDS: JUVEN Shake w/Arg/Glut/Ca2+Bmb (Juven 19.3gm) pkt 240ml PO SCH (07:30)
[2020-05-10] MEDS: pantoprazole 40mg Tablet.DR PO SCH (07:53)
[2020-05-10] MEDS: atorvastatin 10mg tablet PO SCH (07:55)
[2020-05-10] MEDS: aspirin 325mg tablet, delayed-release (Ecotrin) PO SCH (07:55)
[2020-05-10] MEDS: sennosides/docusate sodium tablet PO SCH (07:56)
[2020-05-10] MEDS ORDERED: HYDR-4353 PO (09:12)
[2020-05-10] MEDS ORDERED: ASPI-845 PO (09:12)
[2020-05-10] MEDS ORDERED: SENN-166 PO (09:12)
[2020-05-10] MEDS ORDERED: CLIN300C3 PO (09:17)
[2020-05-10 10:00] VITALS: BP 102/57
--- NOTE | 2020-05-10 12:00 | NUR ---
Patient is stable for discharge per MD. All discharge instructions and education reviewed with patient and all questions answered. New prescriptions e-transmitted to preferred pharmacy. PIV discontinued, tip intact, dressing cdi, patient tolerated well. tele monitoring removed. all known belongings sent with patient. patient ambulated to pmv driven by family.
== END 2020-05-10 11:50 | disposition home or self-care (01) | DRG 220 ==
LOC: UNDOADMIN 05:17 → PAS IN 05:17 → EDSTATUS 07:30 → PAS IN 11:02 → CICU 2S 11:02 → MED 3N 05-09 18:20 → UNDODISIN 05-10 11:50
PROVIDERS: ADMIT Thoracic Surgery (Cardiothoracic Vascular Surgery); ATTEND Thoracic Surgery (Cardiothoracic Vascular Surgery)
PROC: B24BZZ4 Ultrasonography of Heart with Aorta, Transesophageal (ICD-10-PCS; 2020-05-03)
PROC: 02RF08Z Replacement of Aortic Valve with Zooplastic Tissue, Open Approach (ICD-10-PCS; principal; 2020-05-03 07:05)
PROC: 0JH606Z Insertion of Pacemaker, Dual Chamber into Chest Subcutaneous Tissue and Fascia, Open Approach (ICD-10-PCS; 2020-05-09)
PROC: 02H63JZ Insertion of Pacemaker Lead into Right Atrium, Percutaneous Approach (ICD-10-PCS; 2020-05-09)
PROC: 02HK3JZ Insertion of Pacemaker Lead into Right Ventricle, Percutaneous Approach (ICD-10-PCS; 2020-05-09)
DX: I35.2 Nonrheumatic aortic (valve) stenosis with insufficiency (principal); I50.32 Chronic diastolic (congestive) heart failure; I44.2 Atrioventricular block, complete; Z86.011 Personal history of benign neoplasm of the brain; Z87.891 Personal history of nicotine dependence; Z88.0 Allergy status to penicillin; Z98.891 History of uterine scar from previous surgery
CPT/HCPCS: 0232T; 33208; 93312; 93325; Z7506; Z7508; 36415; 36600; 71045; 71046; 71275; 74174; 80048; 80053; 81003; 82330; 82435; 82803; 82947; 82948; 83036; 83735; 84100; 84132; 84295; 84703; 85018; 85025; 85347; 85384; 85610; 85730; 86885; 86900; 86901; 86920; 87081; 87635; 93005; 93971; 94002; 94760; 97116; 97161; 99152; 99153; A4565; A4618; A6258; A6402; A6449; A7000; A7048; C1713; C1751; C1785; C1898; C9113; G0378; J0131; J0690; J0780; J1170; J1265; J1644; J1815; J1885; J1940; J2001; J2060; J2150; J2250; J2370; J2405; J2597; J2704; J2930; J3010; J3370; J3475; J3480; J3490; J7030; J7040; J7050; J7060; J7120; P9045; P9047

== ENCOUNTER 2020-05-17 17:47 | Emergency (ER) | payer BC ==
[~2020-05-17] VITALS: Ht 149.9 cm; Wt 54.0 kg
[~2020-05-17 17:47] MED LIST changes: +ASPI-845 PO; +HYDR-4353 PO; -NO HOME MEDS; +SENN-166 PO; -ceFAZolin 1000mg inj ONE; -ringers solution, lacted 1,000 ML IV SCH
[2020-05-17 18:39] VITALS: BP 95/52
== END 2020-05-17 19:09 | disposition home or self-care (01) ==
LOC: ER 17:48
DX: G89.18 Other acute postprocedural pain (principal); R07.89 Other chest pain; R42 Dizziness and giddiness; Z87.891 Personal history of nicotine dependence; Z98.890 Other specified postprocedural states; Z88.0 Allergy status to penicillin; Z79.82 Long term (current) use of aspirin; Z79.899 Other long term (current) drug therapy
CPT/HCPCS: 71045; 93005; 99283